=== PATIENT | female | born 1975 | race Caucasian/White ===

== ENCOUNTER 2016-07-05 23:54 | Emergency (ER) | payer BC ==
[~2016-07-05] VITALS: Ht 157.5 cm; Wt 56.8 kg
[~2016-07-05 23:54] MED LIST: AMLO1CAP14 PO; LORA0.5T PO; METO100T13 PO
[2016-07-06 00:29] VITALS: Ht 157.5 cm; Wt 56.8 kg
[2016-07-06] MEDS ORDERED: morphine 4 MG/ML VIAL IV STA (02:20)
[2016-07-06] MEDS ORDERED: SOD CHLORIDE 0.9% 500 ML IV STA (02:20)
[2016-07-06] MEDS ORDERED: ONDANSETRON 4 MG INJ IV STA (02:20)
[2016-07-06 02:58] VITALS: TEMP 98.1
--- NOTE | 2016-07-06 03:14 | RADRPT ---
PROCEDURE: ULTRASOUND LIMITED ABDOMEN CLINICAL INDICATION: 40-year-old female with abdominal pain. TECHNIQUE: Multiple sonographic of the right upper quadrant of the abdomen were obtained. The imag es were reviewed on a PACS workstation. COMPARISON: None. FINDINGS: The pancreas is not well visualized secondary to overlying bowel gas. The liver displays normal echogenicity. The liver measures 14.6 cm in length. No evidence of intrah epatic biliary ductal dilatation is seen. The portal and hepatic veins are unremarkable. The gallbladder demonstrates no wall thickening, sludge, nor stones. No pericholecystic fluid is see n. The common bile duct measures 3.3 mm and is not dilated. The right kidney displays normal echogenicity. The right kidney measures 10.1 cm in maximal length. No caliectasis or hydronephrosis is seen. No free fluid is seen. IMPRESSION: Unremarkable right upper quadrant abdominal ultrasound. .Lebron De La Rosa MD, MD Date Time Electronically viewed and signed by .Lebron De La Rosa MD, on 07/06/2016 03:13 .M/
[2016-07-06 03:21] LABS: ADD SCAN DIFF NO
[2016-07-06 03:38] LABS: BASOPHILS % 0.3 % (0.0-2.0); EOSINOPHILS # 0.3 10^3/ul (0.0-0.5); EOSINOPHILS % 3.1 % (0.0-7.0); HEMATOCRIT 42.1 % (37.0-47.0); HEMOGLOBIN 13.7 g/dl (12.0-16.0); LYMPHOCYTES # 1.3 10^3/ul (0.8-2.9); LYMPHOCYTES % 14.2 % (15.0-51.0); MEAN CORPUSCULAR HEMOGLOBIN 29.5 pg (29.0-33.0); MEAN CORPUSCULAR HGB CONC 32.5 g/dl (32.0-37.0); MEAN CORPUSCULAR VOLUME 90.7 fl (82.0-101.0); MEAN PLATELET VOLUME 10.3 fl (7.4-10.4); MONOCYTE # 0.7 10^3/ul (0.3-0.9); MONOCYTES % 7.3 % (0.0-11.0); NEUTROPHIL # 6.7 10^3/ul (1.6-7.5); NEUTROPHILS % 74.7 % (39.0-77.0); PLATELET COUNT 307 10^3/UL (140-415); RED BLOOD COUNT 4.64 10^6/ul (4.20-5.40)
[2016-07-06 03:40] LABS: ALBUMIN 4.4 g/dl (3.3-4.9)
[2016-07-06 03:41] LABS: POTASSIUM 3.7 mmol/L (3.5-5.1)
[2016-07-06 03:43] LABS: ALBUMIN/GLOBULIN RATIO 1.25; BILIRUBIN,INDIRECT 0.3 mg/dl (0-1.1); BILIRUBIN,TOTAL 0.3 mg/dl (0.2-1.3); CREATININE 0.59 mg/dl (0.44-1.00); TOTAL PROTEIN 7.9 g/dl (6.1-8.1)
[2016-07-06 03:44] LABS: CALCIUM 9.5 mg/dl (8.4-10.2)
[2016-07-06 04:04] VITALS: BP 118/79; PULSE 99; RESP 25
[2016-07-06 04:13] LABS: ADD UMIC NO; URINE BILIRUBIN (Dip) NEGATIVE (NEGATIVE); URINE BLOOD (Dip) NEGATIVE (NEGATIVE); URINE COLOR LT. YELLOW (YELLOW); URINE GLUCOSE (Dip) NEGATIVE (NEGATIVE); URINE KETONES (Dip) NEGATIVE (NEGATIVE); URINE LEUKOCYTE ESTERASE (Dip) NEGATIVE (NEGATIVE); URINE NITRITE (Dip) NEGATIVE (NEGATIVE); URINE TOTAL PROTEIN (Dip) NEGATIVE (NEGATIVE); URINE UROBILINOGEN (Dip) 0.2 E.U./dL (0.1-1.0)
--- NOTE | 2016-07-06 04:40 | ERD ---
ER Documentation Chief Complaint Date/Time DATE: 07/06/16 TIME: 04:38 Chief Complaint AP X2 HRS ALSO C/O CHEST PAIN NON RADIATING +SOB HPI This is a 40-year-old female with epigastric abdominal pain and spreading up to her chest. She has pain started to 3 days ago on is burning sensation. Denies any other current complaints. ROS All systems reviewed and are negative except as per history of present illness. Medications Home Meds Reported Medications Lorazepam* (Lorazepam*) 0.5 Mg Tablet, 0.5 MG PO HS Y for ANXIETY, TAB 03/03/16 Amlodipine-Benazepril (Amlodipine-Benazepril) 5-40 Mg Capsule, 1 TAB PO DAILY, # 30 TAB 03/03/16 Metoprolol Succinate* (Toprol XL*) 100 Mg Tab.sr.24h, 100 MG PO DAILY, #30 TAB 04/03/15 Allergies Allergies: Coded Allergies: No Known Allergy (Unverified , 07/06/16) PMhx/Soc History of Surgery: Yes () Anesthesia Reaction: No Hx Neurological Disorder: No Hx Respiratory Disorders: No Hx Cardiac Disorders: Yes (HTN) Hx Psychiatric Problems: No Hx Miscellaneous Medical Probl: No Hx Alcohol Use: No Hx Substance Use: No Hx Tobacco Use: No Smoking Status: Never smoker Physical Exam Vitals Vital Signs Date Time Temp Pulse Resp B/P Pulse Ox O2 Delivery O2 Flow Rate FiO2 07/06/16 04:04 99 25 118/79 100 Room Air 07/06/16 02:58 98.1 91 20 135/85 100 Room Air 07/06/16 00:29 99.1 95 20 157/90 100 Physical Exam Const: [] Head: Atraumatic Eyes: Normal Conjunctiva ENT: Normal External Ears, Nose and Mouth. Neck: Full range of motion..~ No meningismus. Resp: Clear to auscultation bilaterally Cardio: Regular rate and rhythm, no murmurs Abd: Soft, non tender, non distended. Normal bowel sounds Skin: No petechiae or rashes Back: No midline or flank tenderness Ext: No cyanosis, or edema Neur: Awake and alert Psych: Normal Mood and Affect Result Diagram: 07/06/16 0239 07/06/16 0239 Results 24 hrs Laboratory Tests Test 07/06/16 02:39 Alanine Aminotransferase (ALT/SGPT) 23IU/L Albumin 4.4g/dl Albumin/Globulin Ratio 1.25 Alkaline Phosphatase 90IU/L Anion Gap 19 Aspartate Amino Transf (AST/SGOT) 23IU/L Basophils # 0.010^3/ul Basophils % 0.3% Blood Urea Nitrogen 10mg/dl Calcium Level 9.5mg/dl Carbon Dioxide Level 25mmol/L Chloride Level 103mmol/L Creatinine 0.59mg/dl Direct Bilirubin 0.00mg/dl Eosinophils # 0.310^3/ul Eosinophils % 3.1% Globulin 3.50g/dl Glucose Level 104mg/dl Hematocrit 42.1% Hemoglobin 13.7g/dl Indirect Bilirubin 0.3mg/dl Lipase 100U/L Lymphocytes # 1.310^3/ul Lymphocytes % 14.2% Mean Corpuscular Hemoglobin 29.5pg Mean Corpuscular Hemoglobin Concent 32.5g/dl Mean Corpuscular Volume 90.7fl Mean Platelet Volume 10.3fl Monocytes # 0.710^3/ul Monocytes % 7.3% Neutrophils # 6.710^3/ul Neutrophils % 74.7% Nucleated Red Blood Cells # 0.010^3/ul Nucleated Red Blood Cells % 0.0/100WBC Platelet Count 91706^3/UL Potassium Level 3.7mmol/L Red Blood Count 4.6410^6/ul Red Cell Distribution Width 13.0% Sodium Level 143mmol/L Total Bilirubin 0.3mg/dl Total Protein 7.9g/dl Urine Bilirubin NEGATIVE Urine Clarity CLEAR Urine Color LT. YELLOW Urine Glucose NEGATIVE% Urine Hemoglobin NEGATIVE Urine Ketones NEGATIVE Urine Leukocyte Esterase NEGATIVE Urine Nitrite NEGATIVE Urine Specific Hernandez 1.015 Urine Total Protein NEGATIVE Urine Urobilinogen 0.2 E.U./dL Urine pH 6.0 White Blood Count 9.010^3/ul Current Medications Medications (Trade) Dose Ordered Sig/Yolanda Route PRN Reason Start Time Stop Time Status Last Admin Dose Admin Sodium Chloride (NS) 500 ml @ 500 mls/hr Q1H STAT IV 07/06/16 02:20 07/06/16 03:19 DC 07/06/16 02:50 Morphine Sulfate (morphine) 4 mg ONCE STAT IV 07/06/16 02:20 07/06/16 02:21 DC 07/06/16 02:50 Ondansetron HCl (Zofran Inj) 4 mg ONCE STAT IV 07/06/16 02:20 07/06/16 02:21 DC 07/06/16 02:50 Procedures/MDM This is a very pleasant patient comes in with epigastric abdominal pain likely gastric in nature. Ultrasound was negative. Her pain is now resolved. She will be discharged home with Carafate and Zantac. Patient is to return in 8 hours for serial abdominal exams which he agrees. Differential includes cholecystitis, pancreatitis, gastritis, choledocholithiasis, biliary colic however these diagnoses are unlikely given the patient's current physical examination, laboratory data, radiologic evaluation Departure Diagnosis: Primary Impression: Abdominal pain Abdominal location: epigastric Qualified Code: R10.13 - Epigastric pain Condition: Stable CHELA AHN Jul 06, 2016 04:39
[2016-07-06] MEDS ORDERED: SUCR1TAB56 PO (04:41)
[2016-07-06] MEDS ORDERED: RANI150T9 PO (04:41)
== END 2016-07-06 05:10 | disposition home or self-care (01) ==
LOC: E/R 23:54
DX: R10.13 Epigastric pain (principal); I10 Essential (primary) hypertension
CPT/HCPCS: 36415; 76705; 80053; 81003; 83690; 85025; 96374; 96375; J2270; J2405; J7040; Z7502